=== PATIENT | male | born 1965 | race Caucasian/White ===

== ENCOUNTER 2016-10-29 13:00 | Inpatient (IN) | payer OTHER ==
[2016-10-29 15:20] VITALS: BMI 35.5
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
[2016-10-29] MEDS ORDERED: guaiFENesin/D-METHORPHAN HB 10 ML UNIT-DOSE CUPS PO PRN (16:40)
[2016-10-29] MEDS ORDERED: MENTHOL/PHENOL 1 EACH UD MM PRN (16:40)
[2016-10-29] MEDS ORDERED: diphenhydrAMINE HCL 50 MG CAPSULE PO PRN (16:40)
[2016-10-29] MEDS ORDERED: ACETAMINOPHEN 325 MG TABLET (FP) PO PRN (16:40)
[2016-10-29] MEDS ORDERED: IBUPROFEN 400 MG TABLET (FP) PO PRN (16:40)
[2016-10-29] MEDS ORDERED: MAG HYDROX/AL HYDROX/SIMETH 30 ML UNIT-DOSE CUP PO PRN (16:40)
[2016-10-29] MEDS ORDERED: MAGNESIUM HYDROX 2400MG/30ML ORAL SUSPENSION 30 ML CUP PO PRN (16:40)
[2016-10-29] MEDS ORDERED: MAGNESIUM CITRATE 300 ML BOTTLE PO PRN (16:40)
[2016-10-29] MEDS ORDERED: P-EPHED 60MG/TRIPROLIDI 2.5MG TABLET PO PRN (16:40)
[2016-10-29] MEDS ORDERED: LOPERAMIDE HCL 2 MG CAPSULE PO PRN (16:40)
[2016-10-29] MEDS ORDERED: ALBUTEROL SO4 6.7 GM HFA INHALER IH PRN (16:45)
[2016-10-29] MEDS ORDERED: cloNIDine HCL 0.1 MG TABLET PO PRN (16:46)
[2016-10-29] MEDS ORDERED: CYCLOBENZAPRINE HCL 10 MG TABLET (FP) PO PRN (16:47)
[2016-10-29] MEDS ORDERED: ALBUTEROL SO4 2.5/IPRATROPIUM 0.5 INH SOL 3 ML VIAL.NEB. NEB PRN (16:58)
[2016-10-29] MEDS ORDERED: METHADONE HCL 10 MG TABLET (FOR DETOX USE ONLY) PO ONE ×2 (18:15→23:00)
[2016-10-29] MEDS: chlordiazePOXIDE HCL 25 MG CAPSULE PO PRN (19:02)
[2016-10-29] MEDS: NICOTINE POLACRILEX 4 MG GUM BC PRN (19:30)
[2016-10-29] MEDS: BUDESONIDE/FORMETEROL FUMARATE 80/4.5 mcg INHALER IH SCH (22:30)
[2016-10-29] MEDS: THIAMINE HCL 100 MG TABLET (FP) PO SCH (22:32)
[2016-10-29] MEDS: chlordiazePOXIDE HCL 25 MG CAPSULE PO SCH (22:33)
[2016-10-29] MEDS: amLODIPine BESYLATE 5 MG TABLET (FP) PO SCH (22:33)
[2016-10-29 23:23] LABS: URINE APPEARANCE SLCLOUDY; URINE BILIRUBIN NEGATIVE (NEGATIVE); URINE BLOOD NEGATIVE (NEGATIVE); URINE COLOR YELLOW; URINE GLUCOSE (UA) NEGATIVE (NEGATIVE); URINE KETONE NEGATIVE (NEGATIVE); URINE LEUK ESTERASE NEGATIVE (NEGATIVE); URINE NITRITE NEGATIVE (NEGATIVE); URINE PROTEIN NEGATIVE (NEGATIVE); URINE UROBILINOGEN NEGATIVE E.U./dl (0.2-1.0)
[2016-10-30] MEDS: chlordiazePOXIDE HCL 25 MG CAPSULE PO SCH ×4 (05:57→22:30)
[2016-10-30] MEDS: NICOTINE POLACRILEX 4 MG GUM BC PRN (09:19)
[2016-10-30] MEDS ORDERED: METHADONE HCL 10 MG TABLET (FOR DETOX USE ONLY) PO SCH (10:00)
[2016-10-30 10:13] LABS: MCH 31.7 pg (25.7-33.7); MCHC 33.2 g/dl (32.0-35.9); MEAN CELL VOLUME 95.6 fl (80-96); MEAN PLT VOLUME 8.8 fl (7.5-11.1); PLATELET COUNT 208 K/MM3 (134-434); RDW 15.5 % (11.9-15.9); WHITE BLOOD COUNT 8.9 K/mm3 (4.0-10.0)
[2016-10-30] MEDS: NICOTINE 21 MG/24 HOURS TOPICAL PATCH TD SCH (10:18)
[2016-10-30] MEDS: amLODIPine BESYLATE 5 MG TABLET (FP) PO SCH ×2 (10:18→22:30)
[2016-10-30] MEDS: BUDESONIDE/FORMETEROL FUMARATE 80/4.5 mcg INHALER IH SCH ×2 (10:18→22:29)
[2016-10-30] MEDS: PRENATAL VITAMINS W/ FOLIC ACID TABLET (FP) PO SCH (10:19)
[2016-10-30 10:21] LABS: ALBUMIN 3.4 g/dl (3.4-5.0); ALK PHOS 81 U/L (45-117); ANION GAP 8 (8-16); BILIRUBIN,TOTAL 0.4 mg/dL (0.2-1.0); CALCIUM 8.4 mg/dL (8.5-10.1); CO2 26 mmol/L (21-32); CREATININE 0.8 mg/dL (0.7-1.3); GLUCOSE,RANDOM 110 mg/dL (74-106); SGOT/AST 7 U/L (15-37); SGPT/ALT 15 U/L (12-78); TOT PROT 6.2 g/dl (6.4-8.2)
--- NOTE | 2016-10-30 11:24 | PN ---
[facility] CIWA - CIWA Score Nausea/Vomitin-No Nausea/No Vomiting Muscle Tremors: 4-Moderate,w/Arms Extend Anxiety: 4-Mod. Anxious/Guarded Agitation: 4-Moderately Restless Paroxysmal Sweats: 2 Orientation: 0-Oriented Tacttile Disturbances: 3-Moderate Itch/Numb/Burn Auditory Disturbances: 0-None Visual Disturbances: 0-None Headache: 0-None Present CIWA-Ar Total Score: 17 BHS COWS - Scale Resting Pulse: 1= [place] 81-100 Sweatin= Streaming Sweat Restless Observation: 1= Difficult to Sit Still Pupil Size: 2= Moderately Dilated Bone or Joint Aches: 4=Acute Joint/Muscle Pain Runny Nose/ Eye Tearin= Nasal Congestion GI Upset > 30mins: 1= Stomach Cramp Tremor Observation of Outstretched Hands: 1= Tremor [place], Not Seen Yawning Observation: 1= 1-2x During Session Anxiety or Irritability: 2=Irritable/Anxious Goose Flesh Skin: 0=Smooth Skin COWS Score: 18 [facility] Progress Note (SOAP) Subjective: ANXIETY,IRRITABILITY,SWEATS/CHILLS,STOMACH CRAMPS. Objective: 10/30/16 11:24 Vital Signs Temperature 95.5 F L 10/30/16 10:59 Pulse Rate 86 10/30/16 10:59 Respiratory Rate 18 10/30/16 10:59 Blood Pressure 115/75 10/30/16 10:59 O2 Sat by Pulse Oximetry (%) Laboratory Last Values WBC 8.9 K/mm3 (4.0-10.0) 10/30/16 07:10 RBC 4.59 M/mm3 (4.00-5.60) 10/30/16 07:10 Hgb 14.6 GM/dL (11.7-16.9) 10/30/16 07:10 Hct 43.9 % (35.4-49) 10/30/16 07:10 MCV 95.6 fl (80-96) 10/30/16 07:10 MCHC 33.2 g/dl (32.0-35.9) 10/30/16 07:10 RDW 15.5 % (11.9-15.9) 10/30/16 07:10 Plt Count 208 K/MM3 (134-434) 10/30/16 07:10 MPV 8.8 fl (7.5-11.1) 10/30/16 07:10 Sodium 141 mmol/L (136-145) 10/30/16 07:10 Potassium 4.1 mmol/L (3.5-5.1) 10/30/16 07:10 Chloride 107 mmol/L (98-107) 10/30/16 07:10 Carbon Dioxide 26 mmol/L (21-32) 10/30/16 07:10 Anion Gap 8 (8-16) 10/30/16 07:10 BUN 19 mg/dL (7-18) H 10/30/16 07:10 Creatinine 0.8 mg/dL (0.7-1.3) 10/30/16 07:10 Creat Clearance w eGFR > 60 (>60) 10/30/16 07:10 Random Glucose 110 mg/dL (74-106) H 10/30/16 07:10 Calcium 8.4 mg/dL (8.5-10.1) L 10/30/16 07:10 Total Bilirubin 0.4 mg/dL (0.2-1.0) 10/30/16 07:10 AST 7 U/L (15-37) L D 10/30/16 07:10 ALT 15 U/L (12-78) D 10/30/16 07:10 Alkaline Phosphatase 81 U/L (45-117) 10/30/16 07:10 Total Protein 6.2 g/dl (6.4-8.2) L 10/30/16 07:10 Albumin 3.4 g/dl (3.4-5.0) 10/30/16 07:10 Urine Color Yellow 10/29/16 22:00 Urine Appearance Slcloudy 10/29/16 22:00 Urine pH 5.0 (5.0-8.0) 10/29/16 22:00 Ur Specific [place] 1.024 (1.001-1.035) 10/29/16 22:00 Urine Protein Negative (NEGATIVE) 10/29/16 22:00 Urine Glucose (UA) Negative (NEGATIVE) 10/29/16 22:00 Urine Ketones Negative (NEGATIVE) 10/29/16 22:00 Urine Blood Negative (NEGATIVE) 10/29/16 22:00 Urine Nitrite Negative (NEGATIVE) 10/29/16 22:00 Urine Bilirubin Negative (NEGATIVE) 10/29/16 22:00 Urine Urobilinogen Negative E.U./dl (0.2-1.0) 10/29/16 22:00 Ur Leukocyte Esterase Negative (NEGATIVE) 10/29/16 22:00 Assessment: 10/30/16 11:24 WITHDRAWAL SX Plan: CONTINUE DETOX
[2016-10-30] MEDS ORDERED: INFLUENZA VACCINE 45 MCG/0.5 ML (MDV 16-17) IM ONE (12:00)
[2016-10-30] MEDS ORDERED: PNEUMOCOCCAL 23 VACCINE 0.5 ML VIAL IM ONE (12:00)
[2016-10-30] MEDS ORDERED: PNEUMOC 13-VAL CONJ-DIP CRM/PF 0.5 ML DISP.SYRIN IM ONE (12:00)
[2016-10-30] MEDS: CYCLOBENZAPRINE HCL 10 MG TABLET (FP) PO SCH ×2 (13:05→22:30)
[2016-10-30 13:17] LABS: HIV 1 & 2 AB NEGATIVE; HIV 1 AGp24 NEGATIVE
--- NOTE | 2016-10-30 13:22 | CONSULT ---
[facility] Psychiatric Consult - Data Date of interview: 10/30/16 Admission source: [facility] Identifying data: Readmission to [facility] for this 51 y/o male seeking detox treatment for heroin and alcohol dependence. Substance Abuse History: - Smoking Cessation. Smoking history: Current every day smoker. Have you smoked in the past 12 months: Yes. Aproximately how many cigarettes per day: 30. Cigars Per Day: 0. Hx Chewing Tobacco Use: No. Initiated information on smoking cessation: Yes. 'Breaking Loose' booklet given : 10/29/16. - Substance & Tx. History. Hx Alcohol Use: Yes. Hx Substance Use : Yes. Substance Use Type: Alcohol, Opiates. Hx Substance Use Treatment: Yes. - Substances Abused. Alcohol-vodka/beer. Route: Oral. Frequency: Daily. Amount used: 1 gal./2-6 pks. Age of first use: 17. Date of Last Use: . Heroin. Route: Injection. Frequency: Daily. Amount used: 30 bags. Date of Last Use: 10/29/16. Confirmed by patient. Medical History: Bronchial asthma,seizure disorder,COPD and a history of cholecystectomy (2011)/orthosurgery for fracture of neck (1982).Noted additional histort of surgery for right leg fracture (age 6). Psychiatric History: Patient admits to a history of psychiatric hospitalizations at [facility] and [facility].Diagnosed with Bipolar Disorder.Patient sttates that he was prescribed wellbutrin 150 mg /day + trileptal 300 mg/ daily.Non-compliant with these medications for months (self-report).Mr Fajardo declines to resume these drugs in this hospital course in spite of this typewriter ribbon winder' s encouragement.History of one suicide attempt in 2013 (overdose with medications). Physical/Sexual Abuse/Trauma History: Patient denies. Mental Status Exam - Mental Status Exam Alert and Oriented to: Time, Place, Person Cognitive Function: Good Patient Appearance: Well Groomed (obese) Mood: Hopeful, Euthymic Affect: Appropriate, Normal Range Patient Behavior: Appropriate, Cooperative Speech Pattern: Clear Voice Loudness: Normal Thought Process: Goal Oriented Thought Disorder: Not Present Hallucinations: Denies Suicidal Ideation: Denies Homicidal Ideation: Denies Insight/Judgement: Poor Sleep: Poorly, Difficulty falling asleep Appetite: Good Muscle strength/Tone: Normal Gait/Station: Normal Psychiatric Findings - Problem List ([place] 1, 2,3) (1) Alcohol dependence with uncomplicated withdrawal Current Visit: Yes Status: Acute (2) Nicotine dependence Current Visit: Yes Status: Acute Qualifiers: Nicotine product type: cigarettes Substance use status: in withdrawal Qualified Code(s): F17.213 - Nicotine dependence, cigarettes, with withdrawal (3) Opioid dependence with withdrawal Current Visit: Yes Status: Acute (4) Substance induced mood disorder Current Visit: Yes Status: Acute (5) Bipolar II disorder Current Visit: Yes Status: Chronic Comment: Self-report. (6) Asthma Current Visit: Yes Status: Chronic Qualifiers: Asthma severity: mild intermittent Asthma complication type: with status asthmaticus Qualified Code(s): J45.22 - Mild intermittent asthma with status asthmaticus (7) COPD (chronic obstructive pulmonary disease) Current Visit: Yes Status: Chronic Qualifiers: COPD type: emphysema Emphysema type: unilateral Qualified Code(s ): J43.0 - Unilateral pulmonary emphysema [MacLeod's syndrome] (8) Seizure disorder Current Visit: Yes Status: Chronic Comment: trileptal (9) Insomnia Current Visit: Yes Status: Acute - Initial Treatment Plan Initial Treatment Plan: Psychoeducation provided.Patient not receptive.He still declines to resume trileptal and wellbutrin.Made aware of risks inherent to non compliance with medications.Patient agrees ONLY to zolpidem 10 mg po hs prn to address insomnia.Made aware of parasomnias.Observation.
[2016-10-30] MEDS: chlordiazePOXIDE HCL 25 MG CAPSULE PO PRN (14:36)
--- NOTE | 2016-10-30 16:55 | EKG ---
Test Reason : Blood Pressure : / mmHG Vent. Rate : 089 BPM Atrial Rate : 089 BPM P-R Int : 168 ms QRS Dur : 104 ms QT Int : 364 ms P-R-T Axes : 049 054 050 degrees QTc Int : 442 ms NORMAL SINUS RHYTHM NORMAL ECG NO PREVIOUS ECGS AVAILABLE Confirmed by ROSE KAHN MD ([id number]) on 10/30/2016 4:55:07 PM Referred By: Confirmed By:ROSE KAHN MD
[2016-10-30] MEDS ORDERED: ZOLPIDEM TARTRATE 10 MG TABLET (PARK CARE ONLY) PO PRN (22:00)
[2016-10-30] MEDS: THIAMINE HCL 100 MG TABLET (FP) PO SCH (22:29)
[2016-10-30] MEDS: ZOLPIDEM TARTRATE 10 MG TABLET (PARK CARE ONLY) PO PRN (22:30)
[2016-10-31] MEDS: CYCLOBENZAPRINE HCL 10 MG TABLET (FP) PO SCH ×3 (05:43→22:26)
[2016-10-31] MEDS: chlordiazePOXIDE HCL 25 MG CAPSULE PO SCH ×3 (05:43→17:22)
[2016-10-31] MEDS: PRENATAL VITAMINS W/ FOLIC ACID TABLET (FP) PO SCH (10:20)
[2016-10-31] MEDS: METHADONE HCL 5 MG TABLET (FOR DETOX USE ONLY) PO SCH (10:20)
[2016-10-31] MEDS: amLODIPine BESYLATE 5 MG TABLET (FP) PO SCH ×2 (10:20→22:27)
[2016-10-31] MEDS: NICOTINE 21 MG/24 HOURS TOPICAL PATCH TD SCH (10:20)
[2016-10-31] MEDS: BUDESONIDE/FORMETEROL FUMARATE 80/4.5 mcg INHALER IH SCH ×2 (10:21→22:26)
--- NOTE | 2016-10-31 10:47 | PN ---
[facility] CIWA - CIWA Score Nausea/Vomitin-No Nausea/No Vomiting Muscle Tremors: 4-Moderate,w/Arms Extend Anxiety: 4-Mod. Anxious/Guarded Agitation: 4-Moderately Restless Paroxysmal Sweats: 1-[place]imal [place] Moist Orientation: 0-Oriented Tacttile Disturbances: 3-Moderate Itch/Numb/Burn Auditory Disturbances: 0-None Visual Disturbances: 0-None Headache: 0-None Present CIWA-Ar Total Score: 16 S COWS - Scale Resting Pulse: 1= [place] 81-100 Sweatin= Chills/Flushing Restless Observation: 3= Extraneous Movement Pupil Size: 2= Moderately Dilated Bone or Joint Aches: 4=Acute Joint/Muscle Pain Runny Nose/ Eye Tearin= Nasal Congestion GI Upset > 30mins: 1= Stomach Cramp Tremor Observation of Outstretched Hands: 1= Tremor [place], Not Seen Yawning Observation: 1= 1-2x During Session Anxiety or Irritability: 2=Irritable/Anxious Goose Flesh Skin: 0=Smooth Skin COWS Score: 17 [facility] Progress Note (SOAP) Subjective: ANXIETY,SWEATS,CONSTIPATED,RIGHT KNEE PAIN-DENIES [place]. Objective: 10/31/16 10:44 Vital Signs 10/31/16 10/31/16 10/31/16 03:30 06:35 10:19 Temperature 97.1 F L 96.4 F L Pulse Rate 81 88 Respiratory 20 18 20 Rate Blood Pressure 131/82 111/75 Laboratory Last Values WBC 8.9 K/mm3 (4.0-10.0) 10/30/16 07:10 RBC 4.59 M/mm3 (4.00-5.60) 10/30/16 07:10 Hgb 14.6 GM/dL (11.7-16.9) 10/30/16 07:10 Hct 43.9 % (35.4-49) 10/30/16 07:10 MCV 95.6 fl (80-96) 10/30/16 07:10 MCHC 33.2 g/dl (32.0-35.9) 10/30/16 07:10 RDW 15.5 % (11.9-15.9) 10/30/16 07:10 Plt Count 208 K/MM3 (134-434) 10/30/16 07:10 MPV 8.8 fl (7.5-11.1) 10/30/16 07:10 Sodium 141 mmol/L (136-145) 10/30/16 07:10 Potassium 4.1 mmol/L (3.5-5.1) 10/30/16 07:10 Chloride 107 mmol/L (98-107) 10/30/16 07:10 Carbon Dioxide 26 mmol/L (21-32) 10/30/16 07:10 Anion Gap 8 (8-16) 10/30/16 07:10 BUN 19 mg/dL (7-18) H 10/30/16 07:10 Creatinine 0.8 mg/dL (0.7-1.3) 10/30/16 07:10 Creat Clearance w eGFR > 60 (>60) 10/30/16 07:10 Random Glucose 110 mg/dL (74-106) H 10/30/16 07:10 Calcium 8.4 mg/dL (8.5-10.1) L 10/30/16 07:10 Total Bilirubin 0.4 mg/dL (0.2-1.0) 10/30/16 07:10 AST 7 U/L (15-37) L D 10/30/16 07:10 ALT 15 U/L (12-78) D 10/30/16 07:10 Alkaline Phosphatase 81 U/L (45-117) 10/30/16 07:10 Total Protein 6.2 g/dl (6.4-8.2) L 10/30/16 07:10 Albumin 3.4 g/dl (3.4-5.0) 10/30/16 07:10 Urine Color Yellow 10/29/16 22:00 Urine Appearance Slcloudy 10/29/16 22:00 Urine pH 5.0 (5.0-8.0) 10/29/16 22:00 Ur Specific [place] 1.024 (1.001-1.035) 10/29/16 22:00 Urine Protein Negative (NEGATIVE) 10/29/16 22:00 Urine Glucose (UA) Negative (NEGATIVE) 10/29/16 22:00 Urine Ketones Negative (NEGATIVE) 10/29/16 22:00 Urine Blood Negative (NEGATIVE) 10/29/16 22:00 Urine Nitrite Negative (NEGATIVE) 10/29/16 22:00 Urine Bilirubin Negative (NEGATIVE) 10/29/16 22:00 Urine Urobilinogen Negative E.U./dl (0.2-1.0) 10/29/16 22:00 Ur Leukocyte Esterase Negative (NEGATIVE) 10/29/16 22:00 RPR Titer Nonreactive (NONREACTIVE) 10/30/16 07:10 HIV 1&2 Antibody Screen Negative 10/30/16 07:00 HIV P24 Antigen Negative 10/30/16 07:00 Assessment: 10/31/16 10:44 WITHDRAWAL SX Plan: CONTINUE DETOX MARIELOS BANDAGE TO RIGHT KNEE. MOM PRN;CITRATE OF MG IF NOT EFFECTIVE.
[2016-10-31] MEDS: chlordiazePOXIDE HCL 25 MG CAPSULE PO PRN (13:50)
[2016-10-31] MEDS: THIAMINE HCL 100 MG TABLET (FP) PO SCH (22:26)
[2016-10-31] MEDS: ZOLPIDEM TARTRATE 10 MG TABLET (PARK CARE ONLY) PO PRN (22:26)
[2016-10-31] MEDS: chlordiazePOXIDE 5 MG CAPSULE PO SCH (22:27)
[2016-11-01] MEDS: CYCLOBENZAPRINE HCL 10 MG TABLET (FP) PO SCH ×3 (05:46→22:27)
[2016-11-01] MEDS: chlordiazePOXIDE 5 MG CAPSULE PO SCH ×3 (05:46→17:36)
[2016-11-01] MEDS: amLODIPine BESYLATE 5 MG TABLET (FP) PO SCH ×2 (10:26→22:27)
[2016-11-01] MEDS: METHADONE HCL 5 MG TABLET (FOR DETOX USE ONLY) PO SCH (10:26)
[2016-11-01] MEDS: NICOTINE 21 MG/24 HOURS TOPICAL PATCH TD SCH (10:26)
[2016-11-01] MEDS: PRENATAL VITAMINS W/ FOLIC ACID TABLET (FP) PO SCH (10:26)
[2016-11-01] MEDS: BUDESONIDE/FORMETEROL FUMARATE 80/4.5 mcg INHALER IH SCH ×2 (10:27→22:25)
--- NOTE | 2016-11-01 11:09 | PN ---
BHS Progress Note (SOAP) Subjective: DECREASED ANXIETY, SWEATS, IRRITABILITY. Objective: 11/01/16 11:09 Vital Signs Temperature 96.5 F L 11/01/16 09:26 Pulse Rate 94 H 11/01/16 09:26 Respiratory Rate 20 11/01/16 09:26 Blood Pressure 109/75 11/01/16 09:26 O2 Sat by Pulse Oximetry (%) Assessment: 11/01/16 11:09 WITHDRAWAL SX Plan: CONTINUE DETOX
[2016-11-01] MEDS: chlordiazePOXIDE HCL 25 MG CAPSULE PO PRN (14:48)
[2016-11-01] MEDS: THIAMINE HCL 100 MG TABLET (FP) PO SCH (22:25)
[2016-11-01] MEDS: ZOLPIDEM TARTRATE 10 MG TABLET (PARK CARE ONLY) PO PRN (22:26)
[2016-11-01] MEDS: chlordiazePOXIDE HCL 10 MG CAPSULE PO SCH (22:27)
[2016-11-02] MEDS: chlordiazePOXIDE HCL 10 MG CAPSULE PO SCH ×3 (05:41→17:18)
[2016-11-02] MEDS: CYCLOBENZAPRINE HCL 10 MG TABLET (FP) PO SCH ×3 (05:41→22:35)
[2016-11-02] MEDS ORDERED: METHADONE HCL 10 MG TABLET (FOR DETOX USE ONLY) PO SCH (10:00)
--- NOTE | 2016-11-02 10:23 | PN ---
BHS Progress Note (SOAP) Subjective: Sweating,interrupted sleep,restless,rt. knee pain. Pt. has arthritis rt. knee Objective: 11/02/16 10:22 Vital Signs - 8 hr 11/02/16 11/02/16 03:30 06:42 Temperature 96 F L Pulse Rate 74 Respiratory 18 18 Rate Blood Pressure 121/79 Laboratory Last Values WBC 8.9 K/mm3 (4.0-10.0) 10/30/16 07:10 RBC 4.59 M/mm3 (4.00-5.60) 10/30/16 07:10 Hgb 14.6 GM/dL (11.7-16.9) 10/30/16 07:10 Hct 43.9 % (35.4-49) 10/30/16 07:10 MCV 95.6 fl (80-96) 10/30/16 07:10 MCHC 33.2 g/dl (32.0-35.9) 10/30/16 07:10 RDW 15.5 % (11.9-15.9) 10/30/16 07:10 Plt Count 208 K/MM3 (134-434) 10/30/16 07:10 MPV 8.8 fl (7.5-11.1) 10/30/16 07:10 Sodium 141 mmol/L (136-145) 10/30/16 07:10 Potassium 4.1 mmol/L (3.5-5.1) 10/30/16 07:10 Chloride 107 mmol/L (98-107) 10/30/16 07:10 Carbon Dioxide 26 mmol/L (21-32) 10/30/16 07:10 Anion Gap 8 (8-16) 10/30/16 07:10 BUN 19 mg/dL (7-18) H 10/30/16 07:10 Creatinine 0.8 mg/dL (0.7-1.3) 10/30/16 07:10 Creat Clearance w eGFR > 60 (>60) 10/30/16 07:10 Random Glucose 110 mg/dL (74-106) H 10/30/16 07:10 Calcium 8.4 mg/dL (8.5-10.1) L 10/30/16 07:10 Total Bilirubin 0.4 mg/dL (0.2-1.0) 10/30/16 07:10 AST 7 U/L (15-37) L D 10/30/16 07:10 ALT 15 U/L (12-78) D 10/30/16 07:10 Alkaline Phosphatase 81 U/L (45-117) 10/30/16 07:10 Total Protein 6.2 g/dl (6.4-8.2) L 10/30/16 07:10 Albumin 3.4 g/dl (3.4-5.0) 10/30/16 07:10 Urine Color Yellow 10/29/16 22:00 Urine Appearance Slcloudy 10/29/16 22:00 Urine pH 5.0 (5.0-8.0) 10/29/16 22:00 Ur Specific [place] 1.024 (1.001-1.035) 10/29/16 22:00 Urine Protein Negative (NEGATIVE) 10/29/16 22:00 Urine Glucose (UA) Negative (NEGATIVE) 10/29/16 22:00 Urine Ketones Negative (NEGATIVE) 10/29/16 22:00 Urine Blood Negative (NEGATIVE) 10/29/16 22:00 Urine Nitrite Negative (NEGATIVE) 10/29/16 22:00 Urine Bilirubin Negative (NEGATIVE) 10/29/16 22:00 Urine Urobilinogen Negative E.U./dl (0.2-1.0) 10/29/16 22:00 Ur Leukocyte Esterase Negative (NEGATIVE) 10/29/16 22:00 RPR Titer Nonreactive (NONREACTIVE) 10/30/16 07:10 Hepatitis C Antibody 0.1 s/co ratio (0.0-0.9) 10/30/16 07:10 HIV 1&2 Antibody Screen Negative 10/30/16 07:00 HIV P24 Antigen Negative 10/30/16 07:00 labs noted Assessment: 11/02/16 10:22 Withdrawal sx. Plan: Continue detox
[2016-11-02] MEDS: BUDESONIDE/FORMETEROL FUMARATE 80/4.5 mcg INHALER IH SCH ×2 (10:31→22:34)
[2016-11-02] MEDS: amLODIPine BESYLATE 5 MG TABLET (FP) PO SCH ×2 (10:32→22:36)
[2016-11-02] MEDS: NICOTINE 21 MG/24 HOURS TOPICAL PATCH TD SCH (10:32)
[2016-11-02] MEDS: PRENATAL VITAMINS W/ FOLIC ACID TABLET (FP) PO SCH (10:32)
[2016-11-02] MEDS: THIAMINE HCL 100 MG TABLET (FP) PO SCH (22:36)
[2016-11-03] MEDS: CYCLOBENZAPRINE HCL 10 MG TABLET (FP) PO SCH (05:48)
[2016-11-03] MEDS ORDERED: METHADONE HCL 5 MG TABLET (FOR DETOX USE ONLY) PO SCH (06:00)
[2016-11-03 06:32] VITALS: BP 105/78; PULSE 96; TEMP 96
--- NOTE | 2016-11-03 11:20 | DS ---
[facility] Detox Discharge Summary Admission Date: 10/29/16 Discharge Date: 11/03/16 - History Present History: Alcohol Dependence, Cocaine Dependence, Opioid Dependence Pertinent Past History: Asthma seizure disorder - Physical Exam Results Vital Signs: Vital Signs Temperature 96.0 F L 11/03/16 06:31 Pulse Rate 96 H 11/03/16 06:31 Respiratory Rate 16 11/03/16 06:31 Blood Pressure 105/78 11/03/16 06:31 O2 Sat by Pulse Oximetry (%) Pertinent Admission Physical Exam Findings: Withdrawal sx. Laboratory Last Values WBC 8.9 K/mm3 (4.0-10.0) 10/30/16 07:10 RBC 4.59 M/mm3 (4.00-5.60) 10/30/16 07:10 Hgb 14.6 GM/dL (11.7-16.9) 10/30/16 07:10 Hct 43.9 % (35.4-49) 10/30/16 07:10 MCV 95.6 fl (80-96) 10/30/16 07:10 MCHC 33.2 g/dl (32.0-35.9) 10/30/16 07:10 RDW 15.5 % (11.9-15.9) 10/30/16 07:10 Plt Count 208 K/MM3 (134-434) 10/30/16 07:10 MPV 8.8 fl (7.5-11.1) 10/30/16 07:10 Sodium 141 mmol/L (136-145) 10/30/16 07:10 Potassium 4.1 mmol/L (3.5-5.1) 10/30/16 07:10 Chloride 107 mmol/L (98-107) 10/30/16 07:10 Carbon Dioxide 26 mmol/L (21-32) 10/30/16 07:10 Anion Gap 8 (8-16) 10/30/16 07:10 BUN 19 mg/dL (7-18) H 10/30/16 07:10 Creatinine 0.8 mg/dL (0.7-1.3) 10/30/16 07:10 Creat Clearance w eGFR > 60 (>60) 10/30/16 07:10 Random Glucose 110 mg/dL (74-106) H 10/30/16 07:10 Calcium 8.4 mg/dL (8.5-10.1) L 10/30/16 07:10 Total Bilirubin 0.4 mg/dL (0.2-1.0) 10/30/16 07:10 AST 7 U/L (15-37) L D 10/30/16 07:10 ALT 15 U/L (12-78) D 10/30/16 07:10 Alkaline Phosphatase 81 U/L (45-117) 10/30/16 07:10 Total Protein 6.2 g/dl (6.4-8.2) L 10/30/16 07:10 Albumin 3.4 g/dl (3.4-5.0) 10/30/16 07:10 Urine Color Yellow 10/29/16 22:00 Urine Appearance Slcloudy 10/29/16 22:00 Urine pH 5.0 (5.0-8.0) 10/29/16 22:00 Ur Specific [place] 1.024 (1.001-1.035) 10/29/16 22:00 Urine Protein Negative (NEGATIVE) 10/29/16 22:00 Urine Glucose (UA) Negative (NEGATIVE) 10/29/16 22:00 Urine Ketones Negative (NEGATIVE) 10/29/16 22:00 Urine Blood Negative (NEGATIVE) 10/29/16 22:00 Urine Nitrite Negative (NEGATIVE) 10/29/16 22:00 Urine Bilirubin Negative (NEGATIVE) 10/29/16 22:00 Urine Urobilinogen Negative E.U./dl (0.2-1.0) 10/29/16 22:00 Ur Leukocyte Esterase Negative (NEGATIVE) 10/29/16 22:00 RPR Titer Nonreactive (NONREACTIVE) 10/30/16 07:10 Hepatitis C Antibody 0.1 s/co ratio (0.0-0.9) 10/30/16 07:10 HIV 1&2 Antibody Screen Negative 10/30/16 07:00 HIV P24 Antigen Negative 10/30/16 07:00 labs noted - Treatment Hospital Course: Detox Protocol Followed, Detoxed Safely, Responded well, Discharged Condition Good, Rehab Referral Accepted Patient has Accepted a Rehab Referral to: [facility] - Medication Discharge Medications: Ambulatory Orders Bupropion HCl [Wellbutrin Xl -] 150 mg PO DAILY #30 tab.sr.24h 11/24/14 Oxcarbazepine [Trileptal -] 300 mg PO DAILY 11/24/14 Ziprasidone [Geodon] 40 mg PO DAILY 11/24/14 Albuterol Sulfate Inhaler - [Ventolin Hfa Inhaler -] 2 inh PO Q4H PRN 10/29/16 - Diagnosis (1) Alcohol dependence with uncomplicated withdrawal Status: Acute (2) Cocaine dependence Status: Acute Qualifiers: Substance use status: uncomplicated Qualified Code(s): F14.20 - Cocaine dependence, uncomplicated (3) Insomnia Status: Acute (4) Nicotine dependence Status: Acute Qualifiers: Nicotine product type: cigarettes Substance use status: in withdrawal Qualified Code(s): F17.213 - Nicotine dependence, cigarettes, with withdrawal (5) Opioid dependence with withdrawal Status: Acute (6) Substance induced mood disorder Status: Acute (7) Asthma Status: Chronic Qualifiers: Asthma severity: mild intermittent Asthma complication type: with status asthmaticus Qualified Code(s): J45.22 - Mild intermittent asthma with status asthmaticus (8) Bipolar II disorder Status: Chronic (9) COPD (chronic obstructive pulmonary disease) Status: Chronic Qualifiers: COPD type: emphysema Emphysema type: unilateral Qualified Code(s ): J43.0 - Unilateral pulmonary emphysema [MacLeod's syndrome] (10) Seizure disorder Status: Chronic - AMA Did Patient Leave Against Medical Advice: No
== END 2016-11-03 09:48 | disposition home or self-care (01) | DRG 773 ==
LOC: YASAS 13:00 → Y3N 17:58
PROVIDERS: ADMIT Internal Medicine; ATTEND Internal Medicine
PROC: HZ2ZZZZ Detoxification Services for Substance Abuse Treatment (ICD-10-PCS; principal; 2016-11-03)
DX: F11.23 Opioid dependence with withdrawal (principal); F10.230 Alcohol dependence with withdrawal, uncomplicated; F17.213 Nicotine dependence, cigarettes, with withdrawal; F19.24 Other psychoactive substance dependence with psychoactive substance-induced mood disorder; F31.81 Bipolar II disorder; J45.22 Mild intermittent asthma with status asthmaticus; J43.0 Unilateral pulmonary emphysema [MacLeod's syndrome]; G43.909 Migraine, unspecified, not intractable, without status migrainosus; G47.00 Insomnia, unspecified
CPT/HCPCS: 36415; 80053; 81003; 85027; 86593; 87389; 90732; 93005; 93010; G0008; G0009; Q2037